=== PATIENT | male | born 1945 | race Caucasian/White ===

== ENCOUNTER → 2018-04-06 | Outpatient (CLI) | payer MEDICARE, BC ==
[~2018-04-06] MED LIST: ALBU8.5H12 IH; ALPR-445 PO; ASPI-1441 PO; ASPI-757 PO; ASPI81TA86 PO; ATOR20TA22 PO; CAP25 PO; CARI-327 PO; CYCL10TA29 PO; DOCU-202 PO; DOXA4TAB58 PO; DOXA8TAB62 PO; DUTA0.5C14 PO; FLU20 PO; LEVE500 PO; LEVO750T44 PO; LISI-351 PO; LOR1 PO; MAGN400T4 PO; METO-253 PO; METXL50 PO; MIRT7.5T2; Multivitamins PO; OMEP40CA48 PO; OXYC-373 PO; PER PO; SLEEPING PILL; TRAM-420 PO; VENL37.514 PO; VENL75CA4 PO
== END ==
LOC: AMB 09:31
PROVIDERS: ATTEND Nurse Practitioner
DX: M25.551 Pain in right hip (principal); M54.5 Low back pain; W01.0XXA Fall on same level from slipping, tripping and stumbling without subsequent striking against object, initial encounter
CPT/HCPCS: A0425; A0427

== ENCOUNTER 2018-11-10 15:15 | Outpatient (RCR) | payer MEDICARE, BC ==
--- NOTE | 2018-11-24 18:34 | SLP MODIFIED BARIUM SWALLOW ---
Speech Language Pathology Clinical Dysphagia Assessment and Modified Barium Swallow Evaluation Report Date of Evaluation: 11-10-18 and 11-20-18 Patient Name: Lizandro Echevarria Patient : [birth year], 73yr Physician: Dr. Justice Silva Clinician: Pura Singh M.S., [employer]-NET LEAD DEVELOPER MODIFIED BARIUM SWALLOW 11-20-18 Diagnosis: dysphagia Past Medical Hx: Lewy Body Dementia, Esophageal dysphagia Pain Scale (0-10): denies LOC / Participation: Alert and cooperative. Follows instructions: Yes Orientation: A&O x3 Sialorrhea: No Xerostomia: No Hygiene: WNL Supplemental Oxygen Use: No COPD Dx: No Pain with Swallow: Denies, but intermittent globus sensation following deglutition of solids Oral mechanism examination: WFL Overall impression: mild-moderate pharyngeal dysphagia (trace flash aspiration of thin liquids witnessed x1) and significant epiglottic stasis with liquids and solids. Severe esophageal dysphagia. In conjunction with radiology, the pt was seated in the lateral view. The following consistencies were trialed: thin liquids via cup sip, pureed solids, mechanically altered solids, advanced solids, mixed consistencies (thin liquids, mechanical soft foods), and a 12mm barium pill paired with thin liquids. Oral phase presents with slow but adequate mastication and intermittent difficulty initiating second swallow with solids. Oral stage otherwise unremarkable. Pharyngeal phase presents with significant stasis in the epiglottic vallecular with liquids and solids consistent with reduced ROM/strength in base of tongue as well as reduced anterior/superior movement of the hyolaryngeal complex. Contact between base of tongue and posterior pharyngeal wall appeared adequate. Epliglottic inversion appeared adequate with witnessed contact between arytenoids and epiglottic base allowing for complete closure of laryngeal vestibule. However, on 1 occasion, the patient did silently aspirate a trace amount of thin liquids while performing quick, consecutive swallows. The patient was instructed to cough in an attempt to clear the aspirated material, however he patients cough did not prove strong enough to clear the material from the trachea. Strategy trials to clear pharyngeal stasis included chin tuck, effortful swallow, and liquid wash. Effortful swallows to clear liquids and liquid washes to clear solids were most successful. Liquid washes were largely successful in clearing solids from the epiglottic vallecula, however liquid stasis then replaced the solids. Severe esophageal dysfunction was visualized during administration of the 12mm barium pill taken with thin liquids. The barium tablet would not pass through the distal esophagus. Multiple attempts at clearing the pill were unsuccessful including additional dry swallows, liquids swallows, and puree swallows. Attempts to dislodge the pill were abandoned at this point d/t concern with the amount of material building up in the esophagus above the pill. Significant retrograde flow of the materials collected above the pill was witnessed following additional dry and wet swallows. Penetration/Aspiration Scale (PAS)*: Thin liquids (trace amount) : Score of 7; Material enters the airway, passes below the vocal folds, and is not ejected from the trachea despite effort. This occurred on one occasion while patient was trialing quick, consecutive swallows. The patient was instructed to cough to clear the material but was unsuccessful likely due to a weak cough. All other consistencies: Score of 1, Material does not enter airway *(Tamar et al. 1996) SUMMARY and RECOMMENDATIONS Aspiration Risk: Mildly elevated. Negative prognostic indicators include witnessed trace aspiration, residues in pharynx, and severe esophageal dysphagia. Dysphagia Outcome Severity Scale: Level 3; mild-moderate oropharyngeal dysphagia. It is recommended the patient consume a Dysphagia 3 diet (regular consistencies but avoid high risk foods such as rice, peanuts, raw vegetables,etc.) with regular/thin liquids. Small bites will assist in clearing pharyngeal stasis. It is also recommended that the pt not consume quick, consecutive drinks of thin liquids. The compensatory techniques described below under RECOMMENDATIONS should be used with all consistencies (solid and liquid). Speech Therapy Need It is recommended that the pt pursue a referral to a specialist for management of severe esophageal dysphagia. ST in an outpatient setting may be beneficial to provide the patient with additional education if the patient is agreeable. In addition, a pharyngeal exercise program to minimize risk for choking and reduce dysphagia symptoms may be beneficial. RECOMMENDATIONS 1. Referral: Specialist for esophageal dysphagia management. 2. Diet: Dysphagia 3 (add moisture), regular/thin liquids 3. Compensatory Techniques: upright positioning during PO intake, remain upright 30-45min following meals, small bites/sips, alternate 1-2 bites with a drink, 1-2 additional effortful swallows every 3-4 bites/sips 4. Medications: crush pills, administer one at a time in pureed solids (e.g., applesauce, pudding, or yogurt). CLINICAL DYSPHAGIA ASSESSMENT 4-15-19 The patient is a 73 yr old male. He attended the clinical assessment with his spouse. He has a diagnosis of Lewy Body Dementia and his spouse reports worsening word finding and memory over the last 3 months. He has a hx of dysphagia symptoms going back in the [facility] medical record to 2014 with esophageal dilation performed by Dr. Lo on 06/22/15. He began taking omeprazole around that same time but had no decrease in symptoms following initial [address] Dooley notes. The patient had pneumonia approximately 1.5years go but has not had a reoccurrence since. He denies pain with swallow but does admit occasional globus sensation. His dentition is in relatively good condition and he does not wear dentures. He reports experiencing no dysgeusia. He reports excessive belching postprandial and takes OTC heartburn medication (usually TUMS) 1- 2xweek. Per his spouse, the patient has lost 20lbs in the last 2-3 years. His appetite remains poor. He and his spouse agree that he regularly eats breakfast and dinner and sometimes lunch. She describes the patients diet as healthy. He supplements his diet with protein drinks at least once daily. The patients symptoms are consistent with possible oropharyngeal dysphagia. An MBS is recommended to further assess swallow structure and function. Thank you for this referral. Please call [phone] to contact speech therapy at [facility] Pura Singh M.S., [facility]-NET LEAD DEVELOPER Speech Therapist [email or web address]
== END 2018-11-10 18:00 | disposition home or self-care (01) ==
LOC: ST 15:15
PROVIDERS: ATTEND Psychiatry & Neurology Neurology
DX: R13.14 Dysphagia, pharyngoesophageal phase (principal); G31.83 Neurocognitive disorder with Lewy bodies; F02.80 Dementia in other diseases classified elsewhere, unspecified severity, without behavioral disturbance, psychotic disturbance, mood disturbance, and anxiety

== ENCOUNTER → 2018-11-11 | Outpatient (CLI) | payer MEDICARE, BC ==
--- NOTE | 2018-11-11 12:17 | RADIOLOGY IMAGING REPORT ---
[place] [facility] [place] Lizandro Echevarria : 1945 MR: [id number] V: [id number] EXAM DATE: ORDERING PHYSICIAN: ELGIN POWERS TECHNOLOGIST: Location: [facility] Patient: Lizandro Echevarria : 1945 Visit/Account:[id number] Date of Sevice: 11/11/2018 Examination: MR brain without contrast History: Multiple falls Comparison: Head CT April 06, 2018 Technique: Multiplane MR imaging was performed through the brain without contrast. Findings: Diffusion: None Ventricles: Ex vacuo ventricular dilatation similar to prior. Midline shift: None Extraaxial fluid: None. Midline craniocervical structures: Degenerative pannus posterior to the dens. Parenchyma: Mild parenchymal atrophy. Otherwise normal. Vascular flow voids: Normal Orbits and paranasal sinuses: Cataract postsurgical change. Mild left maxillary sinus mucosal thicke lane and small volume left maxillary sinus fluid. Unchanged mucous retention cyst within a left ethm oid air cell. Other: No significant additional finding. Impression: 1. No acute intracranial abnormality. 2. Mild unchanged parenchymal atrophy. 3. Mild left maxillary sinus mucosal thickening and small volume left maxillary sinus secretions may reflect acute sinusitis, correlate with history. Report Dictated By: Armand Rosales MD at 11/11/2018 12:10 PM Report E-Signed By: Armand Rosales MD at 11/11/2018 12:13 PM WSN:[id number]
== END ==
LOC: MRI 01:19
PROVIDERS: ATTEND Psychiatry & Neurology Neurology
DX: G31.83 Neurocognitive disorder with Lewy bodies (principal); F02.80 Dementia in other diseases classified elsewhere, unspecified severity, without behavioral disturbance, psychotic disturbance, mood disturbance, and anxiety; R29.6 Repeated falls
CPT/HCPCS: 70551

== ENCOUNTER → 2018-11-19 | Outpatient (CLI) | payer MEDICARE, BC | LOC: RESP 00:16 | PROVIDERS: ATTEND Psychiatry & Neurology Neurology | DX: G31.83 Neurocognitive disorder with Lewy bodies (principal); F02.80 Dementia in other diseases classified elsewhere, unspecified severity, without behavioral disturbance, psychotic disturbance, mood disturbance, and anxiety; R29.6 Repeated falls | CPT/HCPCS: 95819 ==

== ENCOUNTER → 2018-11-20 | Outpatient (CLI) | payer MEDICARE, BC ==
--- NOTE | 2018-11-20 17:53 | RADIOLOGY IMAGING REPORT ---
FACILITY: [facility] [place] PATIENT NAME: Lizandro Echevarria : 1945 MR: [id number] V: [id number] EXAM DATE: [id number] ORDERING PHYSICIAN: STEFANO QUINONES TECHNOLOGIST: Location: [facility] Patient: Lizandro Echevarria : 1945 Visit/Account:[id number] Date of Sevice: 11/20/2018 Exam type: ESOPH VIDEO SWALLOWING History: Station Comparison: None. Findings: The modified barium swallow was performed by the speech pathologist. Fluoroscopic assistance was pro vided. The patient received thin barium and various food substances and a barium tablet. There is m oderate potential dysphasia and trace laryngeal penetration and trace aspiration. There is possible severe esophageal dysphasia. The 12 mm barium tablet would not pass through the distal esophagus. T he dose area product was 838.45 micro-Zacarias per meter squared IMPRESSION: 1. As above Report Dictated By: Laura Rojas MD at 11/20/2018 5:46 PM Report E-Signed By: Laura Rojas MD at 11/20/2018 5:47 PM WSN:[id number]
== END ==
LOC: RAD 00:51
PROVIDERS: ATTEND Family Medicine
DX: R13.19 Other dysphagia (principal)
CPT/HCPCS: 74230